=== PATIENT | female | born 1980 | race Caucasian/White ===

== ENCOUNTER 2017-11-01 10:07 | Emergency (ER) | payer MEDICARE ==
[~2017-11-01] VITALS: Ht 160 cm; Wt 90.7 kg
[~2017-11-01 10:07] MED LIST: APAP W/CODEINE1 TA2 PO; APAP500 PO; BENTYL20 MG PO; BUTALB-APAP-CA1 EACH PO; CAMBIA50 MG PO; CITRATE OF MAG296 ML PO; COLACE100 MG PO; DARVOCET A5001 EAC1 PO; DIABETA 5MG TABL5 MG PO; DIFLUCAN150 MG PO; EPIPEN0.3 MG/0.3 IM; FLEXERIL PO; IBUPROFEN 200200 M1 PO; IBUPROFEN 600600 M1 PO; IBUPROFEN 800800 M1 PO; MEDROLDOSEPACK PO; NAPROSYN500 MG; NAPROSYN500 MG PO; NEURONTIN 400400 M1; PHENERGAN 25 MG25 M1 PO; PREDNISONE 20 M20 M1 PO; ROBAXIN 750 MG750 M1 PO; TRAMADOL 50 MG50 MG PO; TYLENOL325 MG PO; VALIUM5 MG PO; VEGETABLE LAXA8.6 MG PO; VICODIN 5-5001 EACH PO; ZANAFLEX4 M1 PO; ZOFRAN ODT4 MG PO; ZOFRAN4 MG PO
[2017-11-01] MEDS ORDERED: TORADOL 10 MG T10 MG PO (11:07)
[2017-11-01 11:31] VITALS: BP 139/79
== END 2017-11-01 11:32 | disposition home or self-care (01) ==
LOC: M.ERS 10:07
DX: M25.522 Pain in left elbow (principal); M54.5 Low back pain; Z88.5 Allergy status to narcotic agent

== ENCOUNTER 2017-12-19 15:17 | Emergency (ER) | payer MEDICARE ==
[~2017-12-19] VITALS: Ht 160 cm; Wt 89.8 kg
[~2017-12-19 15:17] MED LIST changes: +TORADOL 10 MG T10 MG PO
[2017-12-19] MEDS ORDERED: HYDROCODONE-AP1 EAC6 PO (16:06)
[2017-12-19] MEDS ORDERED: ZANAFLEX2 MG PO (16:06)
[2017-12-19 16:39] VITALS: BP 115/74
== END 2017-12-19 16:40 | disposition home or self-care (01) ==
LOC: M.ERS 15:17
DX: M54.5 Low back pain (principal); Z88.6 Allergy status to analgesic agent

== ENCOUNTER 2018-06-14 18:22 | Emergency (ER) | payer MEDICARE ==
[~2018-06-14] VITALS: Ht 160 cm; Wt 76.2 kg
[~2018-06-14 18:22] MED LIST changes: +HYDROCODONE-AP1 EAC6 PO; +ZANAFLEX2 MG PO
[2018-06-14] MEDS ORDERED: BACTRIM DS TAB1 EACH PO (18:42)
[2018-06-14] MEDS ORDERED: PREDNISONE 10 M10 M1 PO (18:57)
[2018-06-14 19:13] VITALS: BP 113/68
== END 2018-06-14 19:14 | disposition home or self-care (01) ==
LOC: M.ERS 18:22
DX: T63.301A Toxic effect of unspecified spider venom, accidental (unintentional), initial encounter (principal); S51.851A Open bite of right forearm, initial encounter; Y92.9 Unspecified place or not applicable; Y93.89 Activity, other specified; Y99.9 Unspecified external cause status; Z98.890 Other specified postprocedural states; F17.210 Nicotine dependence, cigarettes, uncomplicated; Z88.5 Allergy status to narcotic agent

== ENCOUNTER 2019-06-06 21:53 | Emergency (ER) | payer MEDICARE ==
[~2019-06-06] VITALS: Ht 160 cm; Wt 68.0 kg
[~2019-06-06 21:53] MED LIST changes: +BACTRIM DS TAB1 EACH PO; +PREDNISONE 10 M10 M1 PO
[2019-06-06 22:22] LABS: URINE BILIRUBIN NEGATIVE (Negative); URINE BLOOD NEGATIVE (Negative); URINE CLARITY CLEAR; URINE COLOR YELLOW; URINE GLUCOSE-RANDOM NEGATIVE (Negative); URINE KETONES NEGATIVE (Negative); URINE LEUKOCYTES-REFLEX NEGATIVE (Negative); URINE NITRITE-REFLEX NEGATIVE (Negative); URINE PROTEIN NEGATIVE (Negative); URINE UROBILINOGEN 0.2 E.U./dl (0.2-1.0)
[2019-06-06 22:45] LABS: ABSOLUTE BASOPHILS 0.1 thou/uL (0.0-0.2); ABSOLUTE EOSINOPHILS 0.1 thou/uL (0.0-0.7); ABSOLUTE LYMPHOCYTES 1.6 thou/uL (0.8-5.3); ABSOLUTE MONOCYTES 0.9 thou/uL (0.0-1.2); ABSOLUTE NEUTROPHILS 2.6 thou/uL (1.6-8.1); BASOPHILS 1.1 %; EOSINOPHILS 2.6 %; HEMOGLOBIN 12.7 gm/dL (12.0-15.0); LYMPHOCYTES 29.9 %; MCH 28.8 pg (26.0-34.0); MCHC 33.5 g/dL (28.0-37.0); MCV 85.9 fL (80.0-100.0); MONOCYTES 16.5 %; MPV 7.9 fl. (7.2-11.1); NUCLEATED RBCS 0 /100WBC; PLATELET COUNT* 248 thou/uL (150-400); POLYS 49.9 %; RBC 4.42 mil/uL (4.20-5.00); WBC 5.2 thou/uL (4.0-11.0)
[2019-06-06 23:00] LABS: CALCIUM 8.7 mg/dL (8.5-10.1); CREATININE 0.9 mg/dL (0.6-1.3); POTASSIUM 3.8 mmol/L (3.5-5.1)
[2019-06-06 23:05] LABS: ALBUMIN 3.9 g/dL (3.4-5.0); TOTAL BILIRUBIN 0.1 mg/dL (<0.1-1.0); TOTAL PROTEIN 7.4 g/dL (6.4-8.2)
[2019-06-07 00:54] VITALS: BP 100/66
== END 2019-06-07 00:56 | disposition home or self-care (01) ==
LOC: M.ERS 21:53
PROVIDERS: Nurse Practitioner Family
DX: N83.202 Unspecified ovarian cyst, left side (principal); Z90.710 Acquired absence of both cervix and uterus; Z98.890 Other specified postprocedural states; Z88.5 Allergy status to narcotic agent

== ENCOUNTER 2019-12-02 13:22 | Emergency (ER) | payer MEDICARE ==
[~2019-12-02] VITALS: Ht 160 cm; Wt 67.6 kg
[2019-12-02] MEDS ORDERED: NORCO 5-325 TA1 EAC1 PO (14:45)
[2019-12-02] MEDS ORDERED: LIDODERM1 EACH TRANSDERM (14:45)
[2019-12-02 16:06] VITALS: BP 108/74
== END 2019-12-02 16:07 | disposition home or self-care (01) ==
LOC: M.ERS 13:22
DX: M53.3 Sacrococcygeal disorders, not elsewhere classified (principal); M54.5 Low back pain; F17.210 Nicotine dependence, cigarettes, uncomplicated; Z98.890 Other specified postprocedural states; Z90.710 Acquired absence of both cervix and uterus; Z98.51 Tubal ligation status

== ENCOUNTER 2019-12-23 17:37 | Emergency (ER) | payer MEDICARE ==
[~2019-12-23] VITALS: Ht 160 cm; Wt 68.0 kg
[~2019-12-23 17:37] MED LIST changes: +LIDODERM1 EACH TRANSDERM; +NORCO 5-325 TA1 EAC1 PO
[2019-12-23 18:07] LABS: URINE BILIRUBIN NEGATIVE (Negative); URINE BLOOD NEGATIVE (Negative); URINE CLARITY CLEAR; URINE COLOR YELLOW; URINE GLUCOSE-RANDOM NEGATIVE (Negative); URINE KETONES NEGATIVE (Negative); URINE LEUKOCYTES-REFLEX NEGATIVE (Negative); URINE NITRITE-REFLEX NEGATIVE (Negative); URINE PROTEIN NEGATIVE (Negative); URINE SPECIFIC GRAVITY 1.015 (1.005-1.030); URINE UROBILINOGEN 0.2 E.U./dl (0.2-1.0)
[2019-12-23 18:24] LABS: AMP/METHAMP Negative (Negative); BARBITURATES Negative (Negative); BENZODIAZEPINES Negative (Negative); COCAINE Negative (Negative); METHADONE Negative (Negative); OPIATES Negative (Negative); PCP Negative (Negative); THC POSITIVE (Negative)
[2019-12-23 18:33] LABS: ABSOLUTE BASOPHILS 0.1 thou/uL (0.0-0.2); ABSOLUTE EOSINOPHILS 0.2 thou/uL (0.0-0.7); ABSOLUTE LYMPHOCYTES 3.5 thou/uL (0.8-5.3); ABSOLUTE MONOCYTES 0.5 thou/uL (0.0-1.2); ABSOLUTE NEUTROPHILS 5.3 thou/uL (1.6-8.1); EOSINOPHILS 2.2 %; HEMATOCRIT 40.1 % (37.0-47.0); HEMOGLOBIN 13.5 gm/dL (12.0-15.0); LYMPHOCYTES 36.8 %; MCH 29.2 pg (26.0-34.0); MCHC 33.6 g/dL (28.0-37.0); MONOCYTES 4.7 %; MPV 8.4 fl. (7.2-11.1); NUCLEATED RBCS 0 /100WBC; PLATELET COUNT* 325 thou/uL (150-400); POLYS 55.3 %; RBC 4.61 mil/uL (4.20-5.00); RDW-CV 13.6 % (10.5-14.5); WBC 9.6 thou/uL (4.0-11.0)
[2019-12-23 18:42] LABS: CREATININE 0.9 mg/dL (0.6-1.3); POTASSIUM 3.5 mmol/L (3.5-5.1)
[2019-12-23 18:47] LABS: TOTAL BILIRUBIN 0.2 mg/dL (<0.1-1.0); TOTAL PROTEIN 7.4 g/dL (6.4-8.2)
[2019-12-23 18:55] LABS: ACETAMINOPHEN < 2 ug/mL (10-30); ALCOHOL < 10 mg/dL (<10); SALICYLATE 5.6 mg/dL (2.8-20.0)
[2019-12-23 23:11] VITALS: BP 127/57
== END 2019-12-23 23:14 ==
LOC: M.ERS 17:37
PROVIDERS: Emergency Medicine Emergency Medical Services
DX: R45.851 Suicidal ideations (principal); Z98.890 Other specified postprocedural states; Z90.710 Acquired absence of both cervix and uterus; Z98.51 Tubal ligation status; Z88.6 Allergy status to analgesic agent

== ENCOUNTER → 2020-04-19 | Outpatient (CLI) | payer MEDICARE | LOC: M.RAD 14:44 | PROVIDERS: ATTEND Nurse Practitioner Family | DX: K59.00 Constipation, unspecified (principal) ==

== ENCOUNTER 2020-05-19 21:04 | Emergency (ER) | payer MEDICARE ==
[~2020-05-19] VITALS: Ht 160 cm; Wt 65.8 kg
[2020-05-19] MEDS ORDERED: VISTARIL 25 MG25 M1 PO (21:17)
[2020-05-19] MEDS ORDERED: DULOXETINE HCL60 MG PO (21:17)
[2020-05-19 21:22] LABS: URINE BILIRUBIN NEGATIVE (Negative); URINE BLOOD NEGATIVE (Negative); URINE CLARITY CLEAR; URINE COLOR YELLOW; URINE GLUCOSE-RANDOM NEGATIVE (Negative); URINE KETONES NEGATIVE (Negative); URINE LEUKOCYTES-REFLEX NEGATIVE (Negative); URINE NITRITE-REFLEX NEGATIVE (Negative); URINE PROTEIN NEGATIVE (Negative); URINE UROBILINOGEN 0.2 E.U./dl (0.2-1.0)
[2020-05-19 21:34] LABS: ABSOLUTE BASOPHILS 0.1 thou/uL (0.0-0.2); ABSOLUTE EOSINOPHILS 0.3 thou/uL (0.0-0.7); ABSOLUTE LYMPHOCYTES 3.2 thou/uL (0.8-5.3); ABSOLUTE MONOCYTES 0.7 thou/uL (0.0-1.2); ABSOLUTE NEUTROPHILS 5.9 thou/uL (1.6-8.1); BASOPHILS 0.9 %; EOSINOPHILS 2.5 %; HEMATOCRIT 39.8 % (37.0-47.0); HEMOGLOBIN 13.5 gm/dL (12.0-15.0); LYMPHOCYTES 31.4 %; MCH 29.5 pg (26.0-34.0); MCV 86.8 fL (80.0-100.0); MONOCYTES 6.7 %; MPV 7.9 fl. (7.2-11.1); NUCLEATED RBCS 0 /100WBC; PLATELET COUNT* 264 thou/uL (150-400); POLYS 58.5 %; RBC 4.58 mil/uL (4.20-5.00); RDW-CV 13.6 % (10.5-14.5)
[2020-05-19 21:42] LABS: CALCIUM 8.2 mg/dL (8.5-10.1); CREATININE 1.1 mg/dL (0.6-1.3); POTASSIUM 3.8 mmol/L (3.5-5.1)
[2020-05-19 21:46] LABS: ALBUMIN 3.7 g/dL (3.4-5.0); MAGNESIUM 1.7 mg/dL (1.8-2.4); TOTAL BILIRUBIN 0.4 mg/dL (<0.1-1.0); TOTAL PROTEIN 7.3 g/dL (6.4-8.2)
[2020-05-19 22:13] VITALS: BP 129/71
== END 2020-05-19 22:14 | disposition home or self-care (01) ==
LOC: M.ERS 21:04
PROVIDERS: Emergency Medicine
DX: R10.11 Right upper quadrant pain (principal); F17.210 Nicotine dependence, cigarettes, uncomplicated; Z88.5 Allergy status to narcotic agent; Z90.710 Acquired absence of both cervix and uterus; Z98.51 Tubal ligation status; Z98.890 Other specified postprocedural states

== ENCOUNTER 2020-12-11 16:41 | Emergency (ER) | payer MEDICARE ==
[~2020-12-11] VITALS: Ht 160 cm; Wt 77.1 kg
[~2020-12-11 16:41] MED LIST changes: +DULOXETINE HCL60 MG PO; +VISTARIL 25 MG25 M1 PO
[2020-12-11 17:44] LABS: URINE BILIRUBIN NEGATIVE (Negative); URINE BLOOD NEGATIVE (Negative); URINE CLARITY CLEAR; URINE COLOR YELLOW; URINE GLUCOSE-RANDOM NEGATIVE (Negative); URINE KETONES NEGATIVE (Negative); URINE LEUKOCYTES-REFLEX NEGATIVE (Negative); URINE NITRITE-REFLEX NEGATIVE (Negative); URINE PROTEIN NEGATIVE (Negative); URINE SPECIFIC GRAVITY 1.015 (1.005-1.030); URINE UROBILINOGEN 0.2 E.U./dl (0.2-1.0)
[2020-12-11] MEDS ORDERED: MEDROLDOSEPACK PO (18:53)
[2020-12-11] MEDS ORDERED: FLEXERIL PO (18:53)
[2020-12-11] MEDS ORDERED: NORCO5 PO ×2 (19:08)
[2020-12-11 19:20] VITALS: BP 125/60
== END 2020-12-11 19:20 | disposition home or self-care (01) ==
LOC: M.ERS 16:41
PROVIDERS: Nurse Practitioner Family
DX: G89.29 Other chronic pain (principal); M54.5 Low back pain; F17.210 Nicotine dependence, cigarettes, uncomplicated; Z88.5 Allergy status to narcotic agent; Z98.890 Other specified postprocedural states; Z98.51 Tubal ligation status; Z90.710 Acquired absence of both cervix and uterus

== ENCOUNTER 2021-09-11 08:07 | Emergency (ER) | payer MEDICAID ==
[~2021-09-11] VITALS: Ht 160 cm; Wt 69.4 kg
[~2021-09-11 08:07] MED LIST changes: +NORCO5 PO
[2021-09-11] MEDS ORDERED: FLEXERIL PO (09:18)
[2021-09-11 10:19] VITALS: BP 125/85
== END 2021-09-11 10:19 | disposition home or self-care (01) ==
LOC: M.ERS 08:07
DX: M54.50 Low back pain, unspecified (principal); Z98.890 Other specified postprocedural states; Z98.51 Tubal ligation status; Z90.710 Acquired absence of both cervix and uterus; Z88.6 Allergy status to analgesic agent; Z88.5 Allergy status to narcotic agent; Z88.8 Allergy status to other drugs, medicaments and biological substances